=== PATIENT | male | born 1975 | race Caucasian/White ===

== ENCOUNTER → 2021-02-01 | Day surgery (SDC) | payer OTHER ==
[~2021-02-01] MED LIST: DOXYCYCLINE MO100 MG PO; METFORMIN HCL500 M1 PO; OMEPRAZOLE 20MG20 MG PO; SERTRALINE HCL50 MG PO
[2021-02-01 10:14] LABS: HGB 16.8 g/dl (13.2-18.0); MCH 28.9 pg (25.0-31.0); MCHC 34.3 g/dL (32.0-36.0); MCV 84.3 fL (78.0-100.0); MPV 10.3 fL (6.0-9.5); RBC 5.81 M/uL (4.70-6.00); RDW 12.8 % (11.5-14.0); WBC 9.8 K/uL (4.0-10.5)
[2021-02-01 10:32] LABS: CREATININE 0.85 mg/dL (0.67-1.17); POTASSIUM 4.1 mmol/L (3.5-5.1)
== END | disposition home or self-care (01) ==
LOC: FAS 09:08
PROVIDERS: Surgery
DX: S60.352A Superficial foreign body of left thumb, initial encounter (principal); X58.XXXA Exposure to other specified factors, initial encounter; Z86.16 Personal history of COVID-19; J30.9 Allergic rhinitis, unspecified; K21.9 Gastro-esophageal reflux disease without esophagitis; E10.9 Type 1 diabetes mellitus without complications; Z79.84 Long term (current) use of oral hypoglycemic drugs; Z86.59 Personal history of other mental and behavioral disorders
CPT/HCPCS: 36415; 80048; J1100; J1885; J2250; J2405; J2704; J3010; J7120